=== PATIENT | female | born 1955 | race Caucasian/White ===

== ENCOUNTER 2017-02-08 08:15 | Outpatient (CLI) | payer BC ==
--- NOTE | 2017-02-11 14:44 | DIAGNOSTIC IMAGING REPORT ---
PROCEDURE: MG BILATERAL SCREENING W/CAD INDICATION: SCREENING. Maternal aunt with a history of breast cancer. TECHNIQUE: Bilateral CC and MLO digital views. COMPARISON: Mammograms 02/07/2016, 01/17/2015 and 11/03/2013. FINDINGS: Computer-aided detection applied. Moderately dense. No change. IMPRESSION: 1. Negative mammogram RESULT CODE: 1- Negative. A. A negative report should not delay biopsy if a dominant or clinically suspicious mass is present. 10-15% of cancers are not identified by x-ray. B. A negative report may reinforce clinical impression. C. Adenosis and dense breasts may obscure an underlying neoplasm. D. False positive reports average 6-10%. E.. A yearly screening mammogram is recommended. A reminder letter will be scheduled.
== END 2017-02-08 23:00 ==
LOC: MAM SRH 08:15
DX: Z12.31 Encounter for screening mammogram for malignant neoplasm of breast (principal)

== ENCOUNTER 2017-04-06 10:02 | Outpatient (CLI) | payer BC ==
--- NOTE | 2017-04-06 13:12 | DIAGNOSTIC IMAGING REPORT ---
PROCEDURE: DEXA BONE DENSITY STUDY CLINICAL INDICATION: PREVENTIVE HEALTH; OSTEOPOROSIS COMPARISON: DEXA scan 01/31/2015. FINDINGS: LUMBAR SPINE: Bone mineral density 0.806, T-score -2.2, osteopenia (previously bone mineral density 0.735, T-score -2.8, 9.7% bone mineral density increase). LEFT HIP: Bone mineral density 0.700, T-score -2.0, osteopenia (previously bone mineral density 0.668, T-score -2.2, 4.8% bone mineral density increase). LEFT FEMORAL NECK: Bone mineral density 0.520, T-score -3.0, osteoporosis (previously bone mineral density 0.519, T-score -3.0, 0.2% bone mineral density increase). (T score greater or equal to -1.0 to: NORMAL) (T score from -1.1 to -2.4: OSTEOPENIA) (T score ess than or equal to -2.5: OSTEOPOROSIS) IMPRESSION: 1. Lumbar spine osteopenia 2. Left hip osteoporosis with 0.2% bone mineral density increase of the femoral neck
== END 2017-04-06 23:00 ==
LOC: XR SRH 10:02
DX: M85.88 Other specified disorders of bone density and structure, other site (principal); M81.8 Other osteoporosis without current pathological fracture